=== PATIENT | female | born 1955 | race Caucasian/White ===

== ENCOUNTER → 2017-05-07 | Outpatient (CLI) | payer OTHER | LOC: MC.RAD 08:53 | DX: Z12.31 Encounter for screening mammogram for malignant neoplasm of breast (principal) ==

== ENCOUNTER → 2018-06-10 | Outpatient (CLI) | payer OTHER | LOC: MC.RAD 10:00 | DX: Z12.31 Encounter for screening mammogram for malignant neoplasm of breast (principal) ==

== ENCOUNTER → 2019-06-20 | Outpatient (CLI) | payer OTHER, MEDICARE | LOC: MC.RAD 10:49 | DX: Z12.31 Encounter for screening mammogram for malignant neoplasm of breast (principal) ==

== ENCOUNTER 2020-02-20 15:07 | Outpatient (CLI) | payer OTHER ==
[~2020-02-20] VITALS: Ht 157.5 cm; Wt 47.7 kg
[2020-02-20 15:30] VITALS: BP 148/82; PULSE 80; TEMP 98.9
[2020-02-20] MEDS ORDERED: ADDERALL15 MG PO (15:30)
[2020-02-20] MEDS ORDERED: SYNTHROID0.05 MG/TA PO (15:31)
== END 2020-02-20 15:59 | disposition home or self-care (01) ==
LOC: EUO 15:07
DX: M81.0 Age-related osteoporosis without current pathological fracture (principal)
CPT/HCPCS: J0897

== ENCOUNTER → 2020-05-17 | Outpatient (CLI) | payer OTHER ==
[~2020-05-17] MED LIST: ADDERALL15 MG PO; SYNTHROID0.05 MG/TA PO
== END ==
LOC: MC.RAD 10:05
DX: Z12.31 Encounter for screening mammogram for malignant neoplasm of breast (principal)

== ENCOUNTER 2020-12-12 14:53 | Outpatient (CLI) | payer OTHER ==
[~2020-12-12] VITALS: Ht 157.5 cm; Wt 49.4 kg
[2020-12-12 15:03] VITALS: BP 164/82; PULSE 78; TEMP 98.2
== END 2020-12-12 15:25 | disposition home or self-care (01) ==
LOC: EUO 14:53
DX: M81.0 Age-related osteoporosis without current pathological fracture (principal)
CPT/HCPCS: J0897

== ENCOUNTER 2021-05-31 09:51 | Outpatient (CLI) | payer OTHER ==
[~2021-05-31] VITALS: Ht 157.5 cm; Wt 49.1 kg
[2021-05-31 11:20] VITALS: BP 98/64; PULSE 67; TEMP 98.4
== END 2021-05-31 13:10 ==
LOC: EUO 09:51
DX: M81.0 Age-related osteoporosis without current pathological fracture (principal)
CPT/HCPCS: J0897

== ENCOUNTER → 2021-06-13 | Outpatient (CLI) | payer OTHER | LOC: MC.RAD 09:50 | DX: Z12.31 Encounter for screening mammogram for malignant neoplasm of breast (principal) ==

== ENCOUNTER 2021-12-05 14:59 | Outpatient (CLI) | payer OTHER ==
[~2021-12-05] VITALS: Ht 157.5 cm; Wt 49.1 kg
[2021-12-05 15:09] VITALS: BP 151/83; PULSE 73; TEMP 99.4
== END 2021-12-05 18:00 | disposition home or self-care (01) ==
LOC: EUO 14:59
DX: M81.0 Age-related osteoporosis without current pathological fracture (principal)
CPT/HCPCS: J0897

== ENCOUNTER 2022-06-20 09:02 | Outpatient (CLI) | payer OTHER ==
[~2022-06-20] VITALS: Ht 157.5 cm; Wt 50.0 kg
[2022-06-20 09:35] VITALS: BP 139/75; PULSE 62; TEMP 98.9
== END 2022-06-20 09:36 | disposition home or self-care (01) ==
LOC: EUO 09:02
DX: Z51.81 Encounter for therapeutic drug level monitoring (principal)
CPT/HCPCS: J0897

== ENCOUNTER → 2022-07-11 | Outpatient (CLI) | payer OTHER | LOC: MC.RAD 13:41 | DX: Z12.31 Encounter for screening mammogram for malignant neoplasm of breast (principal) ==

== ENCOUNTER 2022-12-19 13:45 | Outpatient (CLI) | payer MEDICARE ==
[~2022-12-19] VITALS: Ht 157.5 cm; Wt 48.8 kg
[2022-12-19 14:20] VITALS: BP 143/91; PULSE 69; TEMP 98.8
== END 2022-12-19 14:38 ==
LOC: EUO 13:45
DX: M81.0 Age-related osteoporosis without current pathological fracture (principal)
CPT/HCPCS: J0897

== ENCOUNTER → 2024-03-22 | Outpatient (CLI) | payer MEDICARE ==
[~2024-03-22] MED LIST changes: +BENADRYL25 M2 PO; +LIPITOR20 MG PO
== END ==
LOC: MC.RAD 10:34
DX: Z12.31 Encounter for screening mammogram for malignant neoplasm of breast (principal)

== ENCOUNTER 2024-06-20 13:57 | Outpatient (CLI) | payer MEDICARE ==
[~2024-06-20] VITALS: Ht 157.5 cm; Wt 48.6 kg
[2024-06-20] MEDS ORDERED: Denosumab 60 MG/ML SYRINGE SQ ONE (14:15)
[2024-06-20 14:31] VITALS: BP 139/81; PULSE 65; TEMP 98.7
[2024-06-20] MEDS ORDERED: PROLIA60 MG/ML SQ (14:34)
[2024-06-20] MEDS ORDERED: CALCIUM 600MG+D1 TAB PO (14:35)
--- NOTE | 2024-06-20 14:50 | NUR ---
Pt tolerated prolia without issue. She exits dept with steady gait. Free of complaints at discharge.
== END 2024-06-20 14:50 | disposition home or self-care (01) ==
LOC: EUO 13:57
DX: M81.0 Age-related osteoporosis without current pathological fracture (principal)
CPT/HCPCS: J0897